=== PATIENT | female | born 1955 | race American Indian/Alaskan Native ===

== ENCOUNTER 2017-04-05 14:04 | Emergency (ER) | payer SELFPAY ==
[2017-04-05 19:47] VITALS: BP 134/79
--- NOTE | 2017-04-05 20:14 | Emergency Department Report ---
Minor Respiratory - HPI Chief Complaint: Upper Respiratory Infection Stated Complaint: CHILLS/COUGH Time Seen by Provider: 04/05/17 20:08 Duration: 2 Days Minor Respiratory: Yes Rhinorrhea, Yes Sore Throat, Yes Able to Tolerate Fluids , Yes Cough, Yes Sick Contacts, No Ear Pain, No Hemoptysis, No Chest Pain, No Shortness of Breath, No Fever Other History: This is a 61 y.o. female presents with cough, body aches, and congestion for 2 days. Patient reports it is hard to get out of bed and she is aching from her head to toes. She is having chills but her fever never increased. She is taking OTC cold and flu medication w/o improvement. Denies chest pain, SOB, palpitations, wheezing, or sleep disturbance. ED Review of Systems ROS: Stated complaint: CHILLS/COUGH Other details as noted in HPI Constitutional: chills, malaise. denies: diaphoresis, fever, weakness ENT: congestion. denies: ear pain, throat pain, dental pain, hearing loss, epistaxis Respiratory: cough. denies: orthopnea, shortness of breath, SOB with exertion, SOB at rest, stridor, wheezing Cardiovascular: denies: chest pain, palpitations Gastrointestinal: denies: abdominal pain, nausea, vomiting, diarrhea, constipation, hematemesis, melena, hematochezia Musculoskeletal: myalgia (generalized) Neurological: denies: headache, weakness, paresthesias ED Past Medical Hx - Past Medical History Previous Medical History?: No - Surgical History Past Surgical History?: No Additional Surgical History: tugiligation - Social History Smoking Status: Never Smoker Substance Use Type: None - Medications Home Medications: Home Medications Medication Instructions Recorded Confirmed Last Taken Type Benzonatate 200 mg PO TID PRN #30 capsule 04/05/17 Unknown Rx Fluticasone [Flonase] 1 spray NS QDAY #1 bottle 04/05/17 Unknown Rx Oseltamivir [Tamiflu] 75 mg PO BID 5 Days #10 cap 04/05/17 Unknown Rx Minor Respiratory Exam - Exam General: Vital signs noted. No distress. Alert and acting appropriately. HEENT: Yes Pharyngeal Erythema, Yes Moist Mucous Membranes, Yes Rhinorrhea (red , swollen turbinates), No Pharyngeal Exudates, No Conjuctival Injection, No Frontal Tenderness, No Maxillary Tenderness Ear: Neither TM Bulge, Neither TM Erythema, Neither EAC Pain, Neither EAC Discharge Neck: Yes Supple, No Adenopathy Lungs: Yes Good Air Exchange, Yes Cough, No Wheezes, No Ronchi, No Stridor, No Labored Respirations, No Retractions, No Use of Accessory Muscles, No Other Abnormal Lung Sounds Heart: Yes Regular, No Murmur Abdomen: Yes Normal Bowel Sounds, No Tenderness, No Peritoneal Signs Skin: No Rash, No Edema Neurologic: Alert and oriented, no deficits. Musculoskeletal: Unremarkable. ED Course Vital Signs 04/05/17 04/05/17 15:23 19:38 Temperature 98.8 F Pulse Rate 95 H 84 Respiratory 18 18 Rate Blood Pressure 152/78 134/79 O2 Sat by Pulse 98 96 Oximetry ED Medical Decision Making - Medical Decision Making This is a 61 y.o. female presents with flu-like symptoms x 2 days. Taking OTC cold and flu medicine with minimal improvement. Denies chest pain, wheezing, SOB, and palpitations. Positive influenza A Discharged home on Tamiflu, flonase, ibuprofen, and benzonatate for influenza symptoms. F/U with PCP if symptoms are worse. RTC if SOB, wheezing, chest pain, fever, or not improving as expected. Critical care attestation.: If time is entered above; I have spent that time in minutes in the direct care of this critically ill patient, excluding procedure time. ED Disposition Clinical Impression: Influenza A Disposition: DC-01 TO HOME OR SELFCARE Is pt being admited?: No Does the pt Need Aspirin: No Condition: Stable Instructions: Influenza (ED) Additional Instructions: Increase fluid intake. Wash hands frequently to decrease the spread of infection. Take tylenol or ibuprofen to control fever. Follow up with Primary Care Provider if symptoms are not improving. Return to ER if chest pain, fever, abdominal pain, SOB, wheezing, or difficulty breathing. Prescriptions: Benzonatate 200 mg PO TID PRN #30 capsule PRN Reason: Cough Fluticasone [Flonase] 1 spray NS QDAY #1 bottle Oseltamivir [Tamiflu] 75 mg PO BID 5 Days #10 cap Referrals: PRIMARY CARE, [Primary Care Provider] - 3-5 Days [facility] [Outside] - 3-5 Days [facility] [Outside] - 3-5 Days [facility] [Outside] - 3-5 Days Time of Disposition: 20:24 Print Language: MALAY
== END 2017-04-05 20:35 | disposition home or self-care (01) ==
LOC: ED 14:04
DX: J10.1 Influenza due to other identified influenza virus with other respiratory manifestations (principal); Z98.51 Tubal ligation status
CPT/HCPCS: 87400; 99282

== ENCOUNTER 2017-11-12 16:55 | Emergency (ER) | payer MEDICAID ==
[2017-11-12 17:02] VITALS: BP 144/76
--- NOTE | 2017-11-12 19:44 | Emergency Department Report ---
ED Female HPI - General Chief complaint: Urogenital-Female Stated complaint: VAGINAL ITCHING/DISCHARGE Time Seen by Provider: 11/12/17 18:54 Source: patient Mode of arrival: Ambulatory Limitations: No Limitations - History of Present Illness Initial comments: This is a 62-year-old female nontoxic, well nourished in appearance, no acute signs of distress presents to the ED with c/o of vaginal discharge. Patient denies any vaginal pain or swelling. Patient denies any vaginal ulcers or lesions. Patient denies any nausea, vomiting, chest pain, shortness of breathe , fever, chills, headache, back pain, numbness, tingling, stiff neck. Patient denies any abdominal or pelvic pain. Denies any vaginal bleeding. Patient stated she is not concerned about any STDs and does not want to be tested. Patient denies any urinary symptoms. Patient denies any allergies. MD Complaint: vaginal discharge -: days(s) (2) Radiation: non-radiating Severity scale (0 -10): 0 Improves with: none Worsens with: none Associated Symptoms: vaginal discharge. denies: vaginal bleeding, abdominal pain, nausea/vomiting, fever/chills, headaches, loss of appetite, dysuria, hematuria, rash, seizure, shortness of breath, syncope, weakness - Related Data Previous Rx's Medication Instructions Recorded Last Taken Type Benzonatate 200 mg PO TID PRN #30 capsule 04/05/17 Unknown Rx Fluticasone [Flonase] 1 spray NS QDAY #1 bottle 04/05/17 Unknown Rx Oseltamivir [Tamiflu] 75 mg PO BID 5 Days #10 cap 04/05/17 Unknown Rx Sulfamethoxazole/Trimethoprim 1 each PO BID #14 tablet 11/12/17 Unknown Rx [Bactrim DS TAB] metroNIDAZOLE [Flagyl] 500 mg PO Q12HR #14 tab 11/12/17 Unknown Rx Allergies Allergy/AdvReac Type Severity Reaction Status Date / Time No Known Allergies Allergy Verified 11/12/17 16:59 ED Review of Systems ROS: Stated complaint: VAGINAL ITCHING/DISCHARGE Other details as noted in HPI Constitutional: denies: chills, fever Eyes: denies: eye pain, eye discharge, vision change ENT: denies: ear pain, throat pain Respiratory: denies: cough, shortness of breath, wheezing Cardiovascular: denies: chest pain, palpitations Endocrine: no symptoms reported Gastrointestinal: denies: abdominal pain, nausea, diarrhea Genitourinary: discharge. denies: urgency, dysuria, frequency Musculoskeletal: denies: back pain, joint swelling, arthralgia Skin: denies: rash, lesions Neurological: denies: headache, weakness, paresthesias Psychiatric: denies: anxiety, depression Hematological/Lymphatic: denies: easy bleeding, easy bruising ED Past Medical Hx - Past Medical History Previous Medical History?: No - Surgical History Past Surgical History?: Yes Additional Surgical History: tubal ligation - Social History Smoking Status: Never Smoker Substance Use Type: None - Medications Home Medications: Home Medications Medication Instructions Recorded Confirmed Last Taken Type Benzonatate 200 mg PO TID PRN #30 capsule 04/05/17 Unknown Rx Fluticasone [Flonase] 1 spray NS QDAY #1 bottle 04/05/17 Unknown Rx Oseltamivir [Tamiflu] 75 mg PO BID 5 Days #10 cap 04/05/17 Unknown Rx Sulfamethoxazole/Trimethoprim 1 each PO BID #14 tablet 11/12/17 Unknown Rx [Bactrim DS TAB] metroNIDAZOLE [Flagyl] 500 mg PO Q12HR #14 tab 11/12/17 Unknown Rx ED Physical Exam - General Limitations: No Limitations General appearance: alert, in no apparent distress - Head Head exam: Present: atraumatic, normocephalic - Eye Eye exam: Present: normal appearance Pupils: Present: normal accommodation - ENT ENT exam: Present: normal exam, mucous membranes moist - Neck Neck exam: Present: normal inspection, full ROM. Absent: tenderness, meningismus, lymphadenopathy - Respiratory Respiratory exam: Present: normal lung sounds bilaterally. Absent: respiratory distress, wheezes, rales, rhonchi, stridor, chest wall tenderness, accessory muscle use, decreased breath sounds, prolonged expiratory - Cardiovascular Cardiovascular Exam: Present: regular rate, normal rhythm, normal heart sounds. Absent: bradycardia, tachycardia, irregular rhythm, systolic murmur, diastolic murmur, rubs, gallop - GI/Abdominal GI/Abdominal exam: Present: soft, normal bowel sounds. 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 Absent: cervical motion tendernes, adnexal tenderness, adnexal mass, uterine enlargement, uterine tenderness - Extremities Exam Extremities exam: Present: normal inspection, full ROM - Back Exam Back exam: Present: normal inspection, full ROM. Absent: tenderness, CVA tenderness (R), CVA tenderness (L), muscle spasm, paraspinal tenderness, vertebral tenderness, rash noted - Neurological Exam Neurological exam: Present: alert, oriented X3, normal gait - Psychiatric Psychiatric exam: Present: normal affect, normal mood - Skin Skin exam: Present: warm, dry, intact, normal color. Absent: rash ED Course Vital Signs 11/12/17 16:59 Temperature 97.9 F Pulse Rate 80 Respiratory 18 Rate Blood Pressure 144/76 O2 Sat by Pulse 98 Oximetry - Reevaluation(s) Reevaluation #1: 11/12/17 20:06 Patient is speaking in full sentences with no signs of distress noted. ED Medical Decision Making - Medical Decision Making This is a 62-year-old female that presents with UTI and BV. Patient is stable was examined by me. There is no abdominal tenderness. No pelvic pain. UA obtained. Wet prep obtained. Patient refused to be tested for Gonorrhea chlamydia. Patient was instructed to Follow-up with a primary care doctor in 3- 5 days or if symptoms worsen and continue return to emergency room as soon as possible. At time of discharge, the patient does not seem toxic or ill in appearance. No acute signs of distress noted. Patient agrees to discharge treatment plan of care. No further questions noted by the patient. Critical care attestation.: If time is entered above; I have spent that time in minutes in the direct care of this critically ill patient, excluding procedure time. ED Disposition Clinical Impression: Bacterial vaginosis UTI (urinary tract infection) Qualifiers: Urinary tract infection type: site unspecified Hematuria presence: with hematuria Qualified Code(s): N39.0 - Urinary tract infection, site not specified Disposition: TO HOME OR SELFCARE Is pt being admited?: No Does the pt Need Aspirin: No Condition: Stable Instructions: Metronidazole (By mouth), Bacterial Vaginosis (ED), Urinary Tract Infection in Women (ED) Additional Instructions: Follow-up with a primary care doctor in 3-5 days or if symptoms worsen and continue return to emergency room as soon as possible. Do not consume any alcohol while taking Flagyl. Prescriptions: metroNIDAZOLE [Flagyl] 500 mg PO Q12HR #14 tab Sulfamethoxazole/Trimethoprim [Bactrim DS TAB] 1 each PO BID #14 tablet Referrals: PRIMARY MD MARKOS [Primary Care Provider] - 3-5 Days HOWIE JOHN MD [Staff Physician] - 3-5 Days [facility] [Outside] - 3-5 Days [facility] [Outside] - 3-5 Days Forms: Work/School Release Form(ED)
[2017-11-12 19:59] LABS: Mucus,Urine FEW /HPF
[2017-11-12 20:00] LABS: Color,Urine Yellow (Yellow)
[2017-11-12 20:01] LABS: Bilirubin,Urine Negative (Negative); Blood,Urine Small (Negative)
[2017-11-12 20:02] LABS: Protein,Urine <15 mg/dL mg/dL (Negative); Urobilinogen,Urine < 2.0 mg/dL (<2.0)
== END 2017-11-12 22:30 | disposition home or self-care (01) ==
LOC: ED 16:55
DX: N76.0 Acute vaginitis (principal); B96.89 Other specified bacterial agents as the cause of diseases classified elsewhere; N39.0 Urinary tract infection, site not specified; Z98.51 Tubal ligation status
CPT/HCPCS: 81001; 87086; 87210; 99284

== ENCOUNTER 2017-11-14 00:57 | Emergency (ER) | payer MEDICAID ==
--- NOTE | 2017-11-14 07:13 | Emergency Department Report ---
ED ENT HPI - General Chief complaint: Dental/Oral Stated complaint: TOOTH EXTRACTION WITH BLEEDING Time Seen by Provider: 11/14/17 07:05 Source: patient Mode of arrival: Ambulatory Limitations: No Limitations - History of Present Illness Initial comments: extraction site bleeding mild tooth extracted yesterday by Dr. Avalos, pt has tramadol for pain but has not take medication because she is afraid of possible side effects , pt advised to take medications as prescribed and follow up with Dr. Avalos this am, there is no bandar bleeding at this time. pt is in no acute distress. MD complaint: tooth pain Onset/Timin Location: tooth # (15) Severity: mild Severity scale (0 -10): 3 Quality: aching Consistency: constant Improves with: none Worsens with: none Context- Dental: history of dental caries, poor dental care, other (recent extraction ) Associated Symptoms: gum swelling, toothache. denies: fever, cough, pain with swallowing, sore throat, tinnitus, hearing loss, discharge from ear, rhinorrhea - Related Data Previous Rx's Medication Instructions Recorded Last Taken Type Benzonatate 200 mg PO TID PRN #30 capsule 04/05/17 Unknown Rx Fluticasone [Flonase] 1 spray NS QDAY #1 bottle 04/05/17 Unknown Rx Oseltamivir [Tamiflu] 75 mg PO BID 5 Days #10 cap 04/05/17 Unknown Rx Sulfamethoxazole/Trimethoprim 1 each PO BID #14 tablet 11/12/17 Unknown Rx [Bactrim DS TAB] metroNIDAZOLE [Flagyl] 500 mg PO Q12HR #14 tab 11/12/17 Unknown Rx Allergies Allergy/AdvReac Type Severity Reaction Status Date / Time No Known Allergies Allergy Verified 11/12/17 16:59 ED Dental HPI - General Chief complaint: Dental/Oral Stated complaint: TOOTH EXTRACTION WITH BLEEDING Time Seen by Provider: 11/14/17 07:05 Source: patient Mode of arrival: Ambulatory Limitations: No Limitations - Related Data Previous Rx's Medication Instructions Recorded Last Taken Type Benzonatate 200 mg PO TID PRN #30 capsule 04/05/17 Unknown Rx Fluticasone [Flonase] 1 spray NS QDAY #1 bottle 04/05/17 Unknown Rx Oseltamivir [Tamiflu] 75 mg PO BID 5 Days #10 cap 04/05/17 Unknown Rx Sulfamethoxazole/Trimethoprim 1 each PO BID #14 tablet 11/12/17 Unknown Rx [Bactrim DS TAB] metroNIDAZOLE [Flagyl] 500 mg PO Q12HR #14 tab 11/12/17 Unknown Rx Allergies Allergy/AdvReac Type Severity Reaction Status Date / Time No Known Allergies Allergy Verified 11/12/17 16:59 ED Review of Systems ROS: Stated complaint: TOOTH EXTRACTION WITH BLEEDING Other details as noted in HPI Constitutional: denies: chills, fever Eyes: denies: eye pain, eye discharge, vision change ENT: dental pain Respiratory: denies: cough, shortness of breath, wheezing Cardiovascular: denies: chest pain, palpitations Endocrine: no symptoms reported Gastrointestinal: denies: abdominal pain, nausea, diarrhea Genitourinary: denies: urgency, dysuria, discharge Musculoskeletal: denies: back pain, joint swelling, arthralgia Skin: denies: rash, lesions Neurological: denies: headache, weakness, paresthesias Psychiatric: denies: anxiety, depression Hematological/Lymphatic: denies: easy bleeding, easy bruising ED Past Medical Hx - Past Medical History Previous Medical History?: No - Surgical History Past Surgical History?: Yes Additional Surgical History: tubal ligation - Social History Smoking Status: Never Smoker Substance Use Type: None - Medications Home Medications: Home Medications Medication Instructions Recorded Confirmed Last Taken Type Benzonatate 200 mg PO TID PRN #30 capsule 04/05/17 Unknown Rx Fluticasone [Flonase] 1 spray NS QDAY #1 bottle 04/05/17 Unknown Rx Oseltamivir [Tamiflu] 75 mg PO BID 5 Days #10 cap 04/05/17 Unknown Rx Sulfamethoxazole/Trimethoprim 1 each PO BID #14 tablet 11/12/17 Unknown Rx [Bactrim DS TAB] metroNIDAZOLE [Flagyl] 500 mg PO Q12HR #14 tab 11/12/17 Unknown Rx ED Physical Exam - General Limitations: No Limitations General appearance: alert, in no apparent distress - Head Head exam: Present: atraumatic, normocephalic - Eye Eye exam: Present: normal appearance - ENT ENT exam: Present: normal exam, mucous membranes moist, TM's normal bilaterally , normal external ear exam - Expanded ENT Exam Expanded Teeth exam: Present: dental tenderness # (15 extraction site mild bleeding no focal abscess no facial swelling ) Throat exam: Positive: normal inspection. Negative: tonsillar erythema, tonsillomegaly - Neck Neck exam: Present: normal inspection, full ROM. Absent: lymphadenopathy, thyromegaly - Respiratory Respiratory exam: Present: normal lung sounds bilaterally. Absent: respiratory distress - Cardiovascular Cardiovascular Exam: Present: regular rate, normal rhythm. Absent: systolic murmur, diastolic murmur, rubs, gallop - GI/Abdominal GI/Abdominal exam: Present: soft, normal bowel sounds - Rectal Rectal exam: Present: deferred - Extremities Exam Extremities exam: Present: normal inspection - Back Exam Back exam: Present: normal inspection - Neurological Exam Neurological exam: Present: alert, oriented X3 - Psychiatric Psychiatric exam: Present: normal affect, normal mood - Skin Skin exam: Present: warm, dry, intact, normal color. Absent: rash ED Course Vital Signs 11/14/17 03:06 Temperature 99.5 F Pulse Rate 69 Respiratory 18 Rate Blood Pressure 152/85 O2 Sat by Pulse 99 Oximetry ED Medical Decision Making - Medical Decision Making this is post procedure pain no drysocket scant bleeding guaze applied bleeding controlled pt had abx and pain medication rx by Dr Avalos will follow up with dentist this morning as extraction was done yesterday. pt verbalized agreement and understanding with same. Critical care attestation.: If time is entered above; I have spent that time in minutes in the direct care of this critically ill patient, excluding procedure time. ED Disposition Clinical Impression: Pain, dental Disposition: DC-01 TO HOME OR SELFCARE Is pt being admited?: No Does the pt Need Aspirin: No Condition: Good Instructions: Toothache (ED) Additional Instructions: follow up with your dentist this morning, Dr. Hernández Referrals: PRIMARY CARE, [Primary Care Provider] - 3-5 Days Forms: Work/School Release Form(ED) Time of Disposition: 07:16
[2017-11-14 07:34] VITALS: BP 142/82
== END 2017-11-14 07:33 | disposition home or self-care (01) ==
LOC: ED 00:57
DX: K08.89 Other specified disorders of teeth and supporting structures (principal)
CPT/HCPCS: 99282

== ENCOUNTER 2018-10-26 13:27 | Emergency (ER) | payer MEDICAID ==
[2018-10-26 13:46] VITALS: BP 151/83
--- NOTE | 2018-10-26 14:55 | Emergency Department Report ---
ED General Adult HPI - General Chief complaint: Pain General Stated complaint: EYE/SHOULDER/NECK Time Seen by Provider: 10/26/18 14:42 Source: patient Mode of arrival: Ambulatory Limitations: No Limitations - History of Present Illness Initial comments: Patient is a 63-year-old female with a history of rheumatoid arthritis who is presenting with right eye pain and redness. Patient states has been red for last 24 hours. There is mild exudate present. Patient initially had a foreign body sensation. Patient denies contact use or injury. Patient does state she has associated mild achiness in her shoulders which she attributes to her rheumatoid arthritis. She denies any fevers chills or trauma. Severity scale (0 -10): 6 - Related Data Previous Rx's Medication Instructions Recorded Last Taken Type Benzonatate 200 mg PO TID PRN #30 capsule 04/05/17 Unknown Rx Fluticasone [Flonase] 1 spray NS QDAY #1 bottle 04/05/17 Unknown Rx Oseltamivir [Tamiflu] 75 mg PO BID 5 Days #10 cap 04/05/17 Unknown Rx Sulfamethoxazole/Trimethoprim 1 each PO BID #14 tablet 11/12/17 Unknown Rx [Bactrim DS TAB] metroNIDAZOLE [Flagyl] 500 mg PO Q12HR #14 tab 11/12/17 Unknown Rx Gentamicin 0.3% Ophth Soln 2 drops OP Q4H #1 bottle 10/26/18 Unknown Rx Ibuprofen [Motrin 600 MG tab] 600 mg PO Q8H PRN #10 tablet 10/26/18 Unknown Rx traMADol [Ultram] 50 mg PO Q6HR PRN #12 tablet 10/26/18 Unknown Rx Allergies Allergy/AdvReac Type Severity Reaction Status Date / Time No Known Allergies Allergy Verified 11/12/17 16:59 ED Review of Systems ROS: Stated complaint: EYE/SHOULDER/NECK Other details as noted in HPI Comment: All other systems reviewed and negative ED Past Medical Hx - Past Medical History Previous Medical History?: Yes Hx Arthritis: Yes (RA) - Surgical History Past Surgical History?: Yes Additional Surgical History: tubal ligation - Social History Smoking Status: Never Smoker Substance Use Type: None - Medications Home Medications: Home Medications Medication Instructions Recorded Confirmed Last Taken Type Benzonatate 200 mg PO TID PRN #30 capsule 04/05/17 Unknown Rx Fluticasone [Flonase] 1 spray NS QDAY #1 bottle 04/05/17 Unknown Rx Oseltamivir [Tamiflu] 75 mg PO BID 5 Days #10 cap 04/05/17 Unknown Rx Sulfamethoxazole/Trimethoprim 1 each PO BID #14 tablet 11/12/17 Unknown Rx [Bactrim DS TAB] metroNIDAZOLE [Flagyl] 500 mg PO Q12HR #14 tab 11/12/17 Unknown Rx Gentamicin 0.3% Ophth Soln 2 drops OP Q4H #1 bottle 10/26/18 Unknown Rx Ibuprofen [Motrin 600 MG tab] 600 mg PO Q8H PRN #10 tablet 10/26/18 Unknown Rx traMADol [Ultram] 50 mg PO Q6HR PRN #12 tablet 10/26/18 Unknown Rx ED Physical Exam - General Limitations: No Limitations General appearance: alert, in no apparent distress - Head Head exam: Present: atraumatic, normocephalic - Expanded Eye Exam Expanded Eyelids: Normal Inspection: Right Pupils: Regular, Round: Bilateral Sclera/Conjunctival: Injection: Right Anterior chamber: Normal Inspection: Bilateral ED Course Vital Signs 10/26/18 13:45 Temperature 98.1 F Pulse Rate 90 Respiratory 18 Rate Blood Pressure 151/83 [Right] O2 Sat by Pulse 98 Oximetry ED Medical Decision Making - Medical Decision Making Patient started on antibiotic drops for presumed early bacterial conjunctivitis. Patient also given meds for her exacerbation of her rheumatoid arthritis. Critical care attestation.: If time is entered above; I have spent that time in minutes in the direct care of this critically ill patient, excluding procedure time. ED Disposition Clinical Impression: Conjunctivitis, Rheumatoid arthritis flare Disposition: DC- TO HOME OR SELFCARE Is pt being admited?: No Does the pt Need Aspirin: No Condition: Stable Instructions: Conjunctivitis (ED) Time of Disposition: 14:56
== END 2018-10-26 15:10 | disposition home or self-care (01) ==
LOC: ED 13:27
DX: H10.9 Unspecified conjunctivitis (principal); M06.9 Rheumatoid arthritis, unspecified; Z98.51 Tubal ligation status; Z79.899 Other long term (current) drug therapy
CPT/HCPCS: 99282